=== PATIENT | female | born 1990 | race Caucasian/White ===

== ENCOUNTER 2018-10-23 16:04 | Emergency (ER) | payer BC ==
[~2018-10-23] VITALS: Ht 165.1 cm; Wt 66.7 kg
[2018-10-23 16:10] VITALS: BP 131/85
[2018-10-23] MEDS ORDERED: TDAP [DIPH/PERTUSSIS/TET] 0.5 ML VIAL IM ONE (17:00)
--- NOTE | 2018-10-23 17:40 | NUR ---
TDAP REFUSED SINCE SHE HAD IT LESS THAN 5 YEARS AGO PER PATIENT
== END 2018-10-23 17:44 | disposition home or self-care (01) ==
LOC: ER 16:06
DX: S61.215A Laceration without foreign body of left ring finger without damage to nail, initial encounter (principal); Z88.6 Allergy status to analgesic agent; W26.8XXA Contact with other sharp object(s), not elsewhere classified, initial encounter; Y93.89 Activity, other specified; Y92.89 Other specified places as the place of occurrence of the external cause; Y99.8 Other external cause status
CPT/HCPCS: 12002; 99283; A6403